=== PATIENT | male | born 1990 ===

== ENCOUNTER → 2018-01-10 | Outpatient (CLI) | payer OTHER | END | disposition home or self-care (01) | LOC: LAB EV 09:08 | PROVIDERS: Internal Medicine Gastroenterology | DX: R79.89 Other specified abnormal findings of blood chemistry (principal) | CPT/HCPCS: 81050; 82525; 82570 ==

== ENCOUNTER 2018-06-23 10:03 | Day surgery (SDC) | payer OTHER | END 2018-06-23 12:45 | disposition home or self-care (01) | LOC: US 10:03 | PROVIDERS: Radiology Diagnostic Radiology | PROC: 0FB03ZX Excision of Liver, Percutaneous Approach, Diagnostic (ICD-10-PCS; principal; 2018-06-23 11:00) | DX: K76.0 Fatty (change of) liver, not elsewhere classified (principal); E66.01 Morbid (severe) obesity due to excess calories | CPT/HCPCS: 47000; 76942; 88307; 88313 ==